=== PATIENT | male | born 1965 | race Caucasian/White ===

== ENCOUNTER 2018-01-13 14:24 | Inpatient (IN) | payer OTHER ==
[2018-01-13] MEDS ORDERED: MAG HYDROX/AL HYDROX/SIMETH 30 ML UNIT-DOSE CUP PO PRN (17:20)
[2018-01-13] MEDS ORDERED: MENTHOL/PHENOL 1 EACH UD MM PRN (17:20)
[2018-01-13] MEDS ORDERED: MAGNESIUM CITRATE 300 ML BOTTLE PO PRN (17:20)
[2018-01-13] MEDS ORDERED: LOPERAMIDE HCL 2 MG CAPSULE PO PRN (17:20)
[2018-01-13] MEDS ORDERED: hydrOXYzine PAMOATE 50 MG CAPSULE (FP) PO PRN (17:20)
[2018-01-13] MEDS ORDERED: MAGNESIUM HYDROX 2400MG/30ML ORAL SUSPENSION 30 ML CUP PO PRN (17:20)
[2018-01-13] MEDS ORDERED: P-EPHED 60MG/TRIPROLIDI 2.5MG TABLET PO PRN (17:20)
[2018-01-13] MEDS ORDERED: chlordiazePOXIDE HCL 25 MG CAPSULE PO PRN (17:20)
[2018-01-13] MEDS ORDERED: NICOTINE POLACRILEX 4 MG GUM BC PRN (17:20)
[2018-01-13] MEDS ORDERED: guaiFENesin/D-METHORPHAN HB 10 ML UNIT-DOSE CUPS PO PRN (17:20)
[2018-01-13] MEDS ORDERED: ACETAMINOPHEN 325 MG TABLET (FP) PO PRN (17:20)
[2018-01-13] MEDS ORDERED: IBUPROFEN 400 MG TABLET (FP) PO PRN (17:20)
--- NOTE | 2018-01-13 17:31 | HP ---
CIWA Score - CIWA Score Nausea/Vomitin-No Nausea/No Vomiting Muscle Tremors: 2 Anxiety: 3 Agitation: 3 Paroxysmal Sweats: 3 Orientation: 0-Oriented Tacttile Disturbances: 0-None Auditory Disturbances: 0-None Visual Disturbances: 0-None Headache: 0-None Present CIWA-Ar Total Score: 11 Admission ROS S - HPI Chief Complaint: I am here for detox Allergies/Adverse Reactions: Allergies Allergy/AdvReac Type Severity Reaction Status Date / Time No Known Allergies Allergy Verified 01/13/18 17:19 History of Present Illness: 52 yo male with hx of nicotine and alcohol dependence is here seeking detox. PMHX: depression, denies any other medical problems. Suicidal / homicidal ideation or suicide attempts. Last detox [facility] 11/15/15 -11/19/15. Denies hx seizures or blackouts. Longest period of sobriety 1.5 years . Exam Limitations: No Limitations - Ebola screening Have you traveled outside of the country in the last 21 days: No Have you had contact with anyone from an Ebola affected area: No Have you been sick,other than usual withdrawal symptoms: No Do you have a fever: No - Review of Systems Constitutional: Loss of Appetite, Changes in sleep, Weakness, Unintentional Wgt. Loss (20 lb) EENT: reports: Nose Congestion Respiratory: reports: Cough (chronic r/t to smoking) Cardiac: reports: No Symptoms Reported GI: reports: Poor Fluid Intake, Indigestion : reports: No Symptoms Reported Musculoskeletal: reports: No Symptoms Reported Integumentary: reports: No Symptoms Reported Neuro: reports: No Symptoms reported Endocrine: reports: No Symptoms Reported Hematology: reports: No Symptoms Reported Psychiatric: reports: Orientated x3, Anxious Other Systems: Reviewed and Negative Patient History - Patient Medical History Hx Anemia: No Hx Asthma: No Hx Chronic Obstructive Pulmonary Disease (COPD): No Hx Cancer: No Hx Cardiac Disorders: No Hx Congestive Heart Failure: No Hx Hypertension: No Hx Hypercholesterolemia: No Hx Pacemaker: No HX Cerebrovascular Accident: No Hx Seizures: No Hx Dementia: No Hx Diabetes: No Hx Gastrointestinal Disorders: No Hx Liver Disease: No Hx Genitourinary Disorders: No Hx Sexually Transmitted Disorders: No Hx Renal Disease (ESRD): No Hx Thyroid Disease: No Hx Human Immunodeficiency Virus (HIV): No (September 2017 last tested ) Hx Hepatitis C: No Hx Depression: Yes Hx Suicide Attempt: No Hx Bipolar Disorder: No Hx Schizophrenia: No - Patient Surgical History Past Surgical History: No Hx Neurologic Surgery: No Hx Cataract Extraction: No Hx Cardiac Surgery: No Hx Lung Surgery: No Hx Breast Surgery: No Hx Breast Biopsy: No Hx Abdominal Surgery: No Hx Appendectomy: No Hx Cholecystectomy: No Hx Genitourinary Surgery: No Hx Section: No Hx Orthopedic Surgery: No Anesthesia Reaction: No - PPD History Previous Implant?: Yes Documented Results: Positive w/proof Date: 06/12/14 Results: 15 mm PPD to be Administered?: No - Reproductive History Patient is a Female of Child Bearing Age (11 -55 yrs old): No - Smoking Cessation Smoking history: Current every day smoker Have you smoked in the past 12 months: Yes Aproximately how many cigarettes per day: 30 Cigars Per Day: 0 Hx Chewing Tobacco Use: No Initiated information on smoking cessation: Yes 'Breaking Loose' booklet given: 01/13/18 - Substance & Tx. History Hx Alcohol Use: Yes Hx Substance Use: Yes Substance Use Type: Alcohol Hx Substance Use Treatment: Yes ([facility] 11/15/15 -11/19/15) - Substances Abused Alcohol-beer Route: Oral Frequency: Daily Amount used: 1 case Age of first use: 22 Date of Last Use: 01/13/18 Family Disease History - Family Disease History Family Disease History: CA: Sister (LUNG,BREAST), Other: Father (ALCOHOLIC), Mother (, birthing ) Admission Physical Exam BHS - Vital Signs Vital Signs: Vital Signs - 24 hr 01/13/18 16:06 Temperature 98.6 F Pulse Rate 110 H Respiratory 20 Rate Blood Pressure 145/86 - Physical General Appearance: Yes: No Apparent Distress, Disheveled, Alcohol on Breath, Thin, Irritable, Anxious HEENTM: Yes: EOMI, Hearing grossly Normal, Normal ENT Inspection, Normocephalic , Normal Voice, AGGIE, Pharynx Normal, Tm's normal Respiratory: Yes: Chest Non-Tender, Lungs Clear, Normal Breath Sounds, No Respiratory Distress, No Accessory Muscle Use Neck: Yes: No masses,lesions,Nodules, Trachea in good position Breast: Yes: Breast Exam Deferred Cardiology: Yes: Regular Rhythm, Regular Rate Abdominal: Yes: Normal Bowel Sounds, Non Tender, Flat, Soft Genitourinary: Yes: Within Normal Limits Back: Yes: Normal Inspection Musculoskeletal: Yes: full range of Motion, Gait Steady, Pelvis Stable Extremities: Yes: Normal Capillary Refill, Normal Inspection, Normal Range of Motion, Non-Tender Neurological: Yes: sample selector II-XII NML intact, Fully Oriented, Alert, Motor Strength 5/5, Depressed Affect Integumentary: Yes: Normal Color, Dry, Warm Lymphatic: Yes: Within Normal Limits - Diagnostic (1) Weight loss Current Visit: Yes Status: Acute (2) Anxious mood Current Visit: Yes Status: Acute (3) Alcohol dependence with uncomplicated withdrawal Current Visit: Yes Status: Chronic (4) Nicotine dependence Current Visit: Yes Status: Chronic Qualifiers: Nicotine product type: cigarettes Substance use status: uncomplicated Qualified Code(s): F17.210 - Nicotine dependence, cigarettes, uncomplicated (5) Positive PPD Current Visit: Yes Status: Chronic Cleared for Admission [facility] - Detox or Rehab [facility] Level of Care: Medically Supervised Detox Regimen/Protocol: Librium S Breath Alcohol Content Breath Alcohol Content: 0.202 Urine Drug Screen - Results Drug Screen Negative: No Urine Drug Screen Results: THC-Marijuana
[2018-01-13] MEDS ORDERED: chlordiazePOXIDE HCL 25 MG CAPSULE PO ONE (18:45)
[2018-01-13] MEDS: chlordiazePOXIDE HCL 25 MG CAPSULE PO SCH (23:11)
[2018-01-13] MEDS: THIAMINE HCL 100 MG TABLET (FP) PO SCH (23:12)
[2018-01-13 23:43] LABS: URINE APPEARANCE SLCLOUDY; URINE BILIRUBIN NEGATIVE (<2.0 mg/dL); URINE COLOR YELLOW; URINE GLUCOSE (UA) NEGATIVE (NEGATIVE); URINE KETONE TRACE (NEGATIVE); URINE LEUK ESTERASE NEGATIVE (NEGATIVE); URINE NITRITE NEGATIVE (NEGATIVE)
[2018-01-13 23:53] LABS: URINE PROTEIN 1+ (NEGATIVE)
[2018-01-13 23:58] LABS: EPI CELLS RARE /HPF (FEW); URINE HYALINE CAST 1 /lpf; URINE MUCUS RARE
[2018-01-14] MEDS: chlordiazePOXIDE HCL 25 MG CAPSULE PO SCH ×4 (05:28→22:10)
[2018-01-14 09:55] LABS: HEMATOCRIT 36.5 % (35.4-49); HEMOGLOBIN 12.5 GM/dL (11.7-16.9); MCH 34.3 pg (25.7-33.7); MCHC 34.3 g/dl (32.0-35.9); MEAN PLT VOLUME 9.1 fl (7.5-11.1); PLATELET COUNT 142 K/MM3 (134-434); RBC 3.65 M/mm3 (4.00-5.60); RDW 14.6 % (11.9-15.9); WHITE BLOOD COUNT 10.3 K/mm3 (4.0-10.0)
[2018-01-14] MEDS: PRENATAL VITAMINS W/ FOLIC ACID TABLET (FP) PO SCH (10:34)
[2018-01-14] MEDS: NICOTINE 21 MG/24 HOURS TOPICAL PATCH TD SCH (10:35)
[2018-01-14 10:38] LABS: ALBUMIN 3.3 g/dl (3.4-5.0); ALK PHOS 64 U/L (45-117); ANION GAP 4 (8-16); BLOOD UREA NITROGEN 11 mg/dL (7-18); CALCIUM 8.7 mg/dL (8.5-10.1); CHLORIDE 105 mmol/L (98-107); CO2 30 mmol/L (21-32); GLUCOSE,RANDOM 79 mg/dL (74-106); POTASSIUM 3.8 mmol/L (3.5-5.1); SGOT/AST 72 U/L (15-37); SGPT/ALT 45 U/L (12-78); SODIUM 139 mmol/L (136-145)
[2018-01-14 10:40] LABS: BILIRUBIN,TOTAL 1.1 mg/dL (0.2-1.0); CREATININE 0.7 mg/dL (0.7-1.3); TOT PROT 6.5 g/dl (6.4-8.2)
--- NOTE | 2018-01-14 10:42 | CONSULT ---
[facility] Psychiatric Consult - Data Date of interview: 01/14/18 Admission source: [facility] Identifying data: Patient is a 52 year old male, , unemployed, father of one, and currently homeless. This is one of multiple admissions for patient. Pt. admitted to for alcohol dependence. Substance Abuse History: Following information confirmed with Mr. Loyola: - Smoking Cessation. Smoking history: Current every day smoker. Have you smoked in the past 12 months: Yes. Aproximately how many cigarettes per day: 30. Cigars Per Day: 0. Hx Chewing Tobacco Use: No. Initiated information on smoking cessation: Yes. 'Breaking Loose' booklet given: 01/13/18. - Substance & Tx. History. Hx Alcohol Use: Yes. Hx Substance Use: Yes. Substance Use Type : Alcohol. Hx Substance Use Treatment: Yes ([facility] 11/15/15 -11/19/15). - Substances Abused. Alcohol-beer. Route: Oral. Frequency: Daily. Amount used: 1 case. Age of first use: 22. Date of Last Use: 01/13/18 Medical History: Denies, states he's fine. Psychiatric History: Pt irritable and guarded. Patient upset about being awaken "every 30 minutes" throughout the night. Patient denies h/o psychiatric hospitalizations, outpatient care, and suicide attempt. As per Dr. Valenzuela's note on 10/22/15 patient reported a history of bipolar disorder and reported accepting risperdal. Pt. denied information to screen writer. Patient currently denies suicidal and homicidal ideation. Physical/Sexual Abuse/Trauma History: Denies. Mental Status Exam - Mental Status Exam Alert and Oriented to: Time, Place, Person Cognitive Function: Good Patient Appearance: Unkempt Mood: Irritable Affect: Mood Congruent Patient Behavior: Guarded Speech Pattern: Rambling Voice Loudness: Moderately Soft/Quiet Thought Process: Goal Oriented Thought Disorder: Not Present Hallucinations: Denies Suicidal Ideation: Denies Homicidal Ideation: Denies Insight/Judgement: Poor Sleep: Poorly Appetite: Fair Muscle strength/Tone: Normal Gait/Station: Normal Psychiatric Findings - Problem List ([place] 1, 2,3) (1) Substance induced mood disorder Current Visit: Yes Status: Acute (2) Alcohol dependence with uncomplicated withdrawal Current Visit: Yes Status: Acute (3) Insomnia Current Visit: Yes Status: Acute - Initial Treatment Plan Initial Treatment Plan: Psychoeducation provided. Detoxification in progress. Insomnia to be addressed with the Melatonin 5mg ordered by the [employer]. Will continue to monitor.
--- NOTE | 2018-01-14 11:30 | EKG ---
Test Reason : Blood Pressure : / mmHG Vent. Rate : 090 BPM Atrial Rate : 090 BPM P-R Int : 146 ms QRS Dur : 090 ms QT Int : 354 ms P-R-T Axes : 063 -08 068 degrees QTc Int : 433 ms NORMAL SINUS RHYTHM NORMAL ECG NO PREVIOUS ECGS AVAILABLE Confirmed by VANCE RUDOLPH MD ([id number]) on 01/14/2018 11:30:31 AM Referred By: Confirmed By:VANCE RUDOLPH MD
--- NOTE | 2018-01-14 13:23 | PN ---
[facility] CIWA - CIWA Score Nausea/Vomitin-No Nausea/No Vomiting Muscle Tremors: None Anxiety: 5 Agitation: 4-Moderately Restless Paroxysmal Sweats: No Perspiration Orientation: 0-Oriented Tacttile Disturbances: 3-Moderate Itch/Numb/Burn Auditory Disturbances: 2-Mild Harshness/Frighten Visual Disturbances: 3-Moderate Sensitivity Headache: 0-None Present CIWA-Ar Total Score: 17 BHS Progress Note (SOAP) Subjective: Fatigue, Anxious, Body Aches, Interrupted Sleep. Objective: PATIENT A & O X 3, OBSERVED AMBULATING ON UNIT. NO ACUTE DISTRESS. 01/14/18 13:19 Vital Signs Temperature 97.4 F L 01/14/18 09:17 Pulse Rate 87 01/14/18 11:30 Respiratory Rate 16 01/14/18 11:30 Blood Pressure 116/72 01/14/18 09:17 O2 Sat by Pulse Oximetry (%) Laboratory Tests 01/13/18 01/14/18 01/14/18 23:48 07:30 07:30 WBC 10.3 H RBC 3.65 L Hgb 12.5 Hct 36.5 MCV 100.0 H MCH 34.3 H MCHC 34.3 RDW 14.6 Plt Count 142 D MPV 9.1 Sodium 139 Potassium 3.8 Chloride 105 Carbon Dioxide 30 Anion Gap 4 L BUN 11 D Creatinine 0.7 Creat Clearance w eGFR > 60 Random Glucose 79 D Calcium 8.7 Total Bilirubin 1.1 H D AST 72 H D ALT 45 D Alkaline Phosphatase 64 Total Protein 6.5 Albumin 3.3 L Urine Color Yellow Urine Appearance Slcloudy Urine pH 5.0 D Ur Specific [place] 1.019 Urine Protein 1+ H Urine Glucose (UA) Negative Urine Ketones Trace H Urine Blood 1+ H Urine Nitrite Negative Urine Bilirubin Negative Urine Urobilinogen 2.0 Ur Leukocyte Esterase Negative Urine WBC (Auto) 1 Urine RBC (Auto) 1 Ur Epithelial Cells Rare Hyaline Casts 1 Urine Mucus Rare RPR Titer 01/14/18 07:30 WBC RBC Hgb Hct MCV MCH MCHC RDW Plt Count MPV Sodium Potassium Chloride Carbon Dioxide Anion Gap BUN Creatinine Creat Clearance w eGFR Random Glucose Calcium Total Bilirubin AST ALT Alkaline Phosphatase Total Protein Albumin Urine Color Urine Appearance Urine pH Ur Specific [place] Urine Protein Urine Glucose (UA) Urine Ketones Urine Blood Urine Nitrite Urine Bilirubin Urine Urobilinogen Ur Leukocyte Esterase Urine WBC (Auto) Urine RBC (Auto) Ur Epithelial Cells Hyaline Casts Urine Mucus RPR Titer Nonreactive LABS NOTED. Assessment: 01/14/18 13:22 WITHDRAWAL SYMPTOMS. Plan: CONTINUE DETOX. INCREASE DAILY PO FLUID INTAKE.
[2018-01-14] MEDS: THIAMINE HCL 100 MG TABLET (FP) PO SCH (22:10)
[2018-01-14] MEDS: MELATONIN 5 MG TABLETS PO PRN (22:12)
[2018-01-15] MEDS: chlordiazePOXIDE HCL 25 MG CAPSULE PO SCH ×3 (05:49→17:21)
[2018-01-15] MEDS: PRENATAL VITAMINS W/ FOLIC ACID TABLET (FP) PO SCH (10:08)
[2018-01-15] MEDS: NICOTINE 21 MG/24 HOURS TOPICAL PATCH TD SCH (10:09)
--- NOTE | 2018-01-15 12:14 | PN ---
[facility] CIWA - CIWA Score Nausea/Vomitin-No Nausea/No Vomiting Muscle Tremors: None Anxiety: 5 Agitation: 2 Paroxysmal Sweats: 3 Orientation: 0-Oriented Tacttile Disturbances: 2-Mild Itch/Numbness/Burn Auditory Disturbances: 0-None Visual Disturbances: 3-Moderate Sensitivity Headache: 0-None Present CIWA-Ar Total Score: 15 S Progress Note (SOAP) Subjective: Diarrhea, Body Aches, Sweating, Anxious. Objective: PATIENT A & O X 3. NO ACUTE DISTRESS. 01/15/18 12:11 Vital Signs Temperature 98.8 F 01/15/18 09:32 Pulse Rate 100 H 01/15/18 09:32 Respiratory Rate 18 01/15/18 09:32 Blood Pressure 116/84 01/15/18 09:32 O2 Sat by Pulse Oximetry (%) Laboratory Tests 01/13/18 01/14/18 01/14/18 23:48 07:30 07:30 WBC 10.3 H RBC 3.65 L Hgb 12.5 Hct 36.5 MCV 100.0 H MCH 34.3 H MCHC 34.3 RDW 14.6 Plt Count 142 D MPV 9.1 Sodium 139 Potassium 3.8 Chloride 105 Carbon Dioxide 30 Anion Gap 4 L BUN 11 D Creatinine 0.7 Creat Clearance w eGFR > 60 Random Glucose 79 D Calcium 8.7 Total Bilirubin 1.1 H D AST 72 H D ALT 45 D Alkaline Phosphatase 64 Total Protein 6.5 Albumin 3.3 L Urine Color Yellow Urine Appearance Slcloudy Urine pH 5.0 D Ur Specific [place] 1.019 Urine Protein 1+ H Urine Glucose (UA) Negative Urine Ketones Trace H Urine Blood 1+ H Urine Nitrite Negative Urine Bilirubin Negative Urine Urobilinogen 2.0 Ur Leukocyte Esterase Negative Urine WBC (Auto) 1 Urine RBC (Auto) 1 Ur Epithelial Cells Rare Hyaline Casts 1 Urine Mucus Rare RPR Titer 01/14/18 07:30 WBC RBC Hgb Hct MCV MCH MCHC RDW Plt Count MPV Sodium Potassium Chloride Carbon Dioxide Anion Gap BUN Creatinine Creat Clearance w eGFR Random Glucose Calcium Total Bilirubin AST ALT Alkaline Phosphatase Total Protein Albumin Urine Color Urine Appearance Urine pH Ur Specific [place] Urine Protein Urine Glucose (UA) Urine Ketones Urine Blood Urine Nitrite Urine Bilirubin Urine Urobilinogen Ur Leukocyte Esterase Urine WBC (Auto) Urine RBC (Auto) Ur Epithelial Cells Hyaline Casts Urine Mucus RPR Titer Nonreactive LABS NOTED. Assessment: 01/15/18 12:12 WITHDRAWAL SYMPTOMS. Plan: CONTINUE DETOX. INCREASE DAILY PO FLUID INTAKE.
[2018-01-15] MEDS: THIAMINE HCL 100 MG TABLET (FP) PO SCH (22:09)
[2018-01-15] MEDS: MELATONIN 5 MG TABLETS PO PRN (22:09)
[2018-01-15] MEDS: chlordiazePOXIDE 5 MG CAPSULE PO SCH (22:10)
[2018-01-16] MEDS: chlordiazePOXIDE 5 MG CAPSULE PO SCH ×2 (05:15→10:23)
[2018-01-16] MEDS ORDERED: AMMONIUM LACTATE 12% LOTION 225 GM BOTTLE TP SCH (10:00)
[2018-01-16] MEDS: PRENATAL VITAMINS W/ FOLIC ACID TABLET (FP) PO SCH (10:23)
[2018-01-16] MEDS: NICOTINE 21 MG/24 HOURS TOPICAL PATCH TD SCH (10:25)
[2018-01-16 13:23] VITALS: BP 110/66; PULSE 76; TEMP 95.7
--- NOTE | 2018-01-16 15:26 | PN ---
BHS Progress Note (SOAP) Subjective: Sweating, Anxious, Tremors, Diarrhea. Objective: PATIENT A & O X 3, OBSERVED AMBULATING ON UNITY. NO ACUTE DISTRESS. 01/16/18 15:25 Vital Signs Temperature 95.7 F L 01/16/18 13:22 Pulse Rate 76 01/16/18 13:22 Respiratory Rate 16 01/16/18 13:22 Blood Pressure 110/66 01/16/18 13:22 O2 Sat by Pulse Oximetry (%) Laboratory Tests 01/13/18 01/14/18 01/14/18 23:48 07:30 07:30 WBC 10.3 H RBC 3.65 L Hgb 12.5 Hct 36.5 MCV 100.0 H MCH 34.3 H MCHC 34.3 RDW 14.6 Plt Count 142 D MPV 9.1 Sodium 139 Potassium 3.8 Chloride 105 Carbon Dioxide 30 Anion Gap 4 L BUN 11 D Creatinine 0.7 Creat Clearance w eGFR > 60 Random Glucose 79 D Calcium 8.7 Total Bilirubin 1.1 H D AST 72 H D ALT 45 D Alkaline Phosphatase 64 Total Protein 6.5 Albumin 3.3 L Urine Color Yellow Urine Appearance Slcloudy Urine pH 5.0 D Ur Specific [place] 1.019 Urine Protein 1+ H Urine Glucose (UA) Negative Urine Ketones Trace H Urine Blood 1+ H Urine Nitrite Negative Urine Bilirubin Negative Urine Urobilinogen 2.0 Ur Leukocyte Esterase Negative Urine WBC (Auto) 1 Urine RBC (Auto) 1 Ur Epithelial Cells Rare Hyaline Casts 1 Urine Mucus Rare RPR Titer 01/14/18 07:30 WBC RBC Hgb Hct MCV MCH MCHC RDW Plt Count MPV Sodium Potassium Chloride Carbon Dioxide Anion Gap BUN Creatinine Creat Clearance w eGFR Random Glucose Calcium Total Bilirubin AST ALT Alkaline Phosphatase Total Protein Albumin Urine Color Urine Appearance Urine pH Ur Specific [place] Urine Protein Urine Glucose (UA) Urine Ketones Urine Blood Urine Nitrite Urine Bilirubin Urine Urobilinogen Ur Leukocyte Esterase Urine WBC (Auto) Urine RBC (Auto) Ur Epithelial Cells Hyaline Casts Urine Mucus RPR Titer Nonreactive LABS NOTED. Assessment: 01/16/18 15:26 WITHDRAWAL SYMPTOMS. Plan: CONTINUE DETOX.
--- NOTE | 2018-01-16 15:28 | DS ---
[facility] Detox Discharge Summary Admission Date: 01/13/18 Discharge Date: 01/16/18 - History Present History: Alcohol Dependence Additional Comments: PATIENT DOES NOT WISH TO STAY TO COMPLETE DETOX REGIMEN. RISKS OF LEAVING DETOX UNIT AGAINST MEDICAL ADVICE AND PRIOR TO COMPLETION OF DETOX REGIMEN EXPLAINED TO PATIENT. PATIENT ADVISED TO GO IMMEDIATELY TO NEAREST ER SHOULD ANY INTOLERABLE DETOX SYMPTOMS DEVELOP AT ANY TIME. PATIENT LEFT DETOX UNIT IN STABLE MEDICAL CONDITION. Pertinent Past History: History of Positive PPD, Insomnia, Nicotine Dependence, Anxiety. - Physical Exam Results Vital Signs: Vital Signs Temperature 95.7 F L 01/16/18 13:22 Pulse Rate 76 01/16/18 13:22 Respiratory Rate 16 01/16/18 13:22 Blood Pressure 110/66 01/16/18 13:22 O2 Sat by Pulse Oximetry (%) - Treatment Hospital Course: Detoxed Safely - Medication Discharge Medications: Ambulatory Orders BUPROPion HCL "SR" [Wellbutrin Sr [Nf]] 150 mg PO DAILY 01/13/18 - Diagnosis (1) Alcohol dependence with uncomplicated withdrawal Status: Acute (2) Anxious mood Status: Acute (3) Weight loss Status: Acute (4) Nicotine dependence Status: Chronic Qualifiers: Nicotine product type: cigarettes Substance use status: uncomplicated Qualified Code(s): F17.210 - Nicotine dependence, cigarettes, uncomplicated (5) Positive PPD Status: Chronic (6) Insomnia Status: Acute Qualifiers: Insomnia type: unspecified Qualified Code(s): G47.00 - Insomnia, unspecified (7) Substance induced mood disorder Status: Acute - AMA Did Patient Leave Against Medical Advice: Yes (PATIENT DID NOT WISH TO STAY TO COMPELTE DETOX REGIMEN.)
[2018-01-16] MEDS ORDERED: chlordiazePOXIDE HCL 10 MG CAPSULE PO SCH (23:00)
== END 2018-01-16 14:54 | disposition left against medical advice (07) | DRG 770 ==
LOC: YASAS 14:24 → Y3N 18:28
PROVIDERS: ADMIT Internal Medicine; ATTEND Internal Medicine
PROC: HZ2ZZZZ Detoxification Services for Substance Abuse Treatment (ICD-10-PCS; principal; 2018-01-13)
DX: F10.230 Alcohol dependence with withdrawal, uncomplicated (principal); F17.210 Nicotine dependence, cigarettes, uncomplicated; F19.24 Other psychoactive substance dependence with psychoactive substance-induced mood disorder; F41.9 Anxiety disorder, unspecified; G47.00 Insomnia, unspecified; R76.11 Nonspecific reaction to tuberculin skin test without active tuberculosis; R63.4 Abnormal weight loss; Z68.20 Body mass index [BMI] 20.0-20.9, adult
CPT/HCPCS: 36415; 71046-TC-FY; 80053; 81003; 81015; 85027; 86593; 93005; 93010

== ENCOUNTER 2018-07-11 14:40 | Inpatient (IN) | payer SELFPAY ==
[2018-07-11 14:46] VITALS: BMI 20.7
--- NOTE | 2018-07-11 15:07 | HP ---
CIWA Score - CIWA Score Nausea/Vomitin Muscle Tremors: 2 Anxiety: 2 Agitation: 2 Paroxysmal Sweats: 1-Minimal Palms Moist Orientation: 0-Oriented Tacttile Disturbances: 1-Very Mild Itch/Numbness Auditory Disturbances: 1-Very Mild Visual Disturbances: 1-Very Mild Sensitivity Headache: 2-Mild CIWA-Ar Total Score: 14 Admission ROS BHS - HPI Chief Complaint: i need help to stop drinking alcohol,marijuana Allergies/Adverse Reactions: Allergies Allergy/AdvReac Type Severity Reaction Status Date / Time No Known Allergies Allergy Verified 07/11/18 16:27 History of Present Illness: this 52 years old male with alcohol and marijuana dependence,seeking detox, withdrawal symptom,last detox [facility] 04/12/18 to 04/16/18 blackout hypertension no med anxiety,depression,insomnia tinea pedis weight loss multiple admissions in detox keep relapsing no significant period of sobriety Exam Limitations: No Limitations - Ebola screening Have you been sick,other than usual withdrawal symptoms: No - Review of Systems Constitutional: Loss of Appetite, Malaise, Night Sweats, Changes in sleep, Weakness, Unintentional Wgt. Loss EENT: reports: Nose Congestion Respiratory: reports: No Symptoms reported Cardiac: reports: No Symptoms Reported GI: reports: Nausea, Poor Appetite, Abdominal cramping : reports: No Symptoms Reported Musculoskeletal: reports: Back Pain, Muscle Pain Integumentary: reports: Dryness Neuro: reports: Headache, Tremors Endocrine: reports: No Symptoms Reported Hematology: reports: No Symptoms Reported Psychiatric: reports: No Sypmtoms Reported, Judgement Intact, Mood/Affect Appropiate, Orientated x3 (insomnia) Patient History - Patient Medical History Hx Anemia: No Hx Asthma: No Hx Chronic Obstructive Pulmonary Disease (COPD): No Hx Cancer: No Hx Cardiac Disorders: No Hx Congestive Heart Failure: No Hx Hypertension: No Hx Hypercholesterolemia: No Hx Pacemaker: No HX Cerebrovascular Accident: No Hx Seizures: No Hx Dementia: No Hx Diabetes: No Hx Gastrointestinal Disorders: No Hx Liver Disease: No Hx Genitourinary Disorders: No Hx Sexually Transmitted Disorders: No Hx Renal Disease (ESRD): No Hx Thyroid Disease: No Hx Human Immunodeficiency Virus (HIV): No (September 2017 last tested ) Hx Hepatitis C: No Hx Depression: Yes Hx Suicide Attempt: No Hx Bipolar Disorder: No Hx Schizophrenia: No Other Medical History: no suicidal,no homicidal,insomnia - Patient Surgical History Past Surgical History: No Hx Neurologic Surgery: No Hx Cataract Extraction: No Hx Cardiac Surgery: No Hx Lung Surgery: No Hx Breast Surgery: No Hx Breast Biopsy: No Hx Abdominal Surgery: No Hx Appendectomy: No Hx Cholecystectomy: No Hx Genitourinary Surgery: No Hx Section: No Hx Orthopedic Surgery: No Anesthesia Reaction: No - PPD History Date: 06/12/14 Results: 15 mm - Smoking Cessation Smoking history: Current every day smoker Have you smoked in the past 12 months: Yes Aproximately how many cigarettes per day: 30 Cigars Per Day: 0 Hx Chewing Tobacco Use: No Initiated information on smoking cessation: Yes 'Breaking Loose' booklet given: 07/11/18 - Substance & Tx. History Hx Alcohol Use: Yes Hx Substance Use: Yes Substance Use Type: Alcohol, Marijuana Hx Substance Use Treatment: Yes ([facility] 04/12/18 to 04/16/18) - Substances Abused Alcohol Route: Oral Frequency: Daily Amount used: 1 pint of whisky/12 packs of 24 ozs Age of first use: 22 Date of Last Use: 07/11/18 Marijuana/Hashish Route: Smoking Frequency: 3-6 times per week Amount used: 50$ Age of first use: 22 Date of Last Use: 07/10/18 Family Disease History - Family Disease History Family Disease History: CA: Father (ALCOHOLIC,lung cancer), Sister (LUNG,BREAST) , Other: Father, Mother (, birthing ) Admission Physical Exam BHS - Vital Signs Vital Signs: Vital Signs - 24 hr 07/11/18 14:41 Temperature 98.5 F Pulse Rate 73 Respiratory 16 Rate Blood Pressure 102/82 - Physical General Appearance: Yes: Moderate Distress, Tremorous, Irritable, Sweating, Anxious HEENTM: Yes: Normal ENT Inspection, AGGIE, Pharynx Normal Respiratory: Yes: Lungs Clear, Normal Breath Sounds, No Respiratory Distress Neck: Yes: Within Normal Limits, Supple, Trachea in good position Breast: Yes: Within Normal Limits Cardiology: Yes: Within Normal Limits, Regular Rhythm, Regular Rate, S1, S2 Abdominal: Yes: Within Normal Limits, Normal Bowel Sounds, Non Tender, Soft Genitourinary: Yes: Within Normal Limits Back: Yes: Muscle Spasm Musculoskeletal: Yes: full range of Motion, Back pain, Muscle Pain Extremities: Yes: Within Normal Limits, Normal Range of Motion, Tremors 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, Fully Oriented, Alert, Motor Strength 5/5 Integumentary: Yes: Dry, Other (tinea pedis) Lymphatic: Yes: Within Normal Limits - Diagnostic (1) Alcohol dependence with uncomplicated withdrawal Current Visit: No Status: Acute (2) Alcohol dependence with intoxication, uncomplicated Current Visit: Yes Status: Acute (3) Nicotine dependence Current Visit: No Status: Acute Qualifiers: Nicotine product type: cigarettes Substance use status: in withdrawal Qualified Code(s): F17.213 - Nicotine dependence, cigarettes, with withdrawal (4) Weight loss Current Visit: No Status: Acute (5) Insomnia secondary to depression with anxiety Current Visit: Yes Status: Acute (6) Dehydration Current Visit: Yes Status: Acute (7) Tinea pedis Current Visit: Yes Status: Acute Cleared for Admission [facility] - Detox or Rehab [facility] Level of Care: Medically Managed Detox Regimen/Protocol: Librium S Breath Alcohol Content Breath Alcohol Content: 0.297 Urine Drug Screen - Results Drug Screen Negative: Yes
[2018-07-11] MEDS ORDERED: guaiFENesin/D-METHORPHAN HB 10 ML UNIT-DOSE CUPS PO PRN (15:22)
[2018-07-11] MEDS ORDERED: chlordiazePOXIDE HCL 25 MG CAPSULE PO PRN (15:22)
[2018-07-11] MEDS ORDERED: hydrOXYzine PAMOATE 50 MG CAPSULE (FP) PO PRN (15:22)
[2018-07-11] MEDS ORDERED: IBUPROFEN 400 MG TABLET (FP) PO PRN (15:22)
[2018-07-11] MEDS ORDERED: MAGNESIUM CITRATE 300 ML BOTTLE PO PRN (15:22)
[2018-07-11] MEDS ORDERED: LOPERAMIDE HCL 2 MG CAPSULE PO PRN (15:22)
[2018-07-11] MEDS ORDERED: MAGNESIUM HYDROX 2400MG/30ML ORAL SUSPENSION 30 ML CUP PO PRN (15:22)
[2018-07-11] MEDS ORDERED: MENTHOL/PHENOL 1 EACH UD MM PRN (15:22)
[2018-07-11] MEDS ORDERED: P-EPHED 60MG/TRIPROLIDI 2.5MG TABLET PO PRN (15:22)
[2018-07-11] MEDS ORDERED: ACETAMINOPHEN 325 MG TABLET (FP) PO PRN (15:22)
[2018-07-11] MEDS ORDERED: NICOTINE POLACRILEX 2 MG GUM BC PRN (15:22)
[2018-07-11] MEDS ORDERED: MAG HYDROX/AL HYDROX/SIMETH 30 ML UNIT-DOSE CUP PO PRN (15:22)
[2018-07-11] MEDS ORDERED: diphenhydrAMINE HCL 25 MG CAPSULE (FP) PO PRN (17:25)
[2018-07-11] MEDS: chlordiazePOXIDE HCL 25 MG CAPSULE PO SCH ×2 (17:36→22:49)
[2018-07-11] MEDS: NICOTINE 21 MG/24 HOURS TOPICAL PATCH TD SCH (17:37)
[2018-07-11 22:47] LABS: URINE APPEARANCE CLEAR; URINE BILIRUBIN NEGATIVE (<2.0 mg/dL); URINE COLOR COLORLESS; URINE GLUCOSE (UA) NEGATIVE (NEGATIVE); URINE KETONE NEGATIVE (NEGATIVE); URINE LEUK ESTERASE NEGATIVE (NEGATIVE); URINE NITRITE NEGATIVE (NEGATIVE); URINE PROTEIN NEGATIVE (NEGATIVE); URINE UROBILINOGEN NEGATIVE mg/dL (0.2-1.0)
[2018-07-11] MEDS: AMMONIUM LACTATE 12% LOTION 225 GM BOTTLE TP SCH (22:48)
[2018-07-11] MEDS: THIAMINE HCL 100 MG TABLET (FP) PO SCH (22:49)
[2018-07-11] MEDS: TOLNAFTATE 1% CREAM 15 GM TUBE TP SCH (22:49)
[2018-07-11] MEDS: FLUOCINONIDE 0.05% CREAM (60 GM TUBE) TP SCH (22:49)
[2018-07-12] MEDS: chlordiazePOXIDE HCL 25 MG CAPSULE PO SCH ×4 (05:08→22:17)
--- NOTE | 2018-07-12 09:13 | CONSULT ---
[facility] Psychiatric Consult - Data Date of interview: 07/12/18 Admission source: [facility] Identifying data: This is a 52 years old male, single father of one, unemployued , living with roommate, on PA support, with no psychiatric hospitalization history, with alcohol, nicotine and marijuana dependence,seeking detox reporting withdrawal symptoms, with the last detox at [facility] on 04/12/18 to 04/16 Substance Abuse History: Smoking history: Current every day smoker. Have you smoked in the past 12 months: Yes. Aproximately how many cigarettes per day: 30. Cigars Per Day: 0. Hx Chewing Tobacco Use: No. Initiated information on smoking cessation: Yes. 'Breaking Loose' booklet given: 07/11/18. - Substance & Tx. History. Hx Alcohol Use: Yes. Hx Substance Use: Yes. Substance Use Type : Alcohol, Marijuana. Hx Substance Use Treatment: Yes ([facility] 04/12/18 to ). - Substances Abused. Alcohol. Route: Oral. Frequency: Daily. Amount used: 1 pint of whisky/12 packs of 24 ozs. Age of first use: 22. Date of Last Use: 07/11/18. Marijuana/Hashish. Route: Smoking. Frequency: 3-6 times per week. Amount used: 50$. Age of first use: 22. Date of Last Use: Medical History: HTN, PPD positive history, Weight loss history, Syncope history , Dermatitis history, Psychiatric History: Patient reports history of ansiety and depression, reports no psychiatric hospitalization history, reports no medicationsn taking prior to admission. Denies suicidal, homicidal history Physical/Sexual Abuse/Trauma History: Denies Additional Comment: Observation]. Detox Unit Care Protocol. Psychiatric Findings - Problem List ([place] 1, 2,3) (1) Alcohol dependence with intoxication, uncomplicated Current Visit: Yes Status: Acute (2) Insomnia secondary to depression with anxiety Current Visit: Yes Status: Acute (3) Alcohol dependence Current Visit: No Status: Acute (4) Drug-induced mood disorder Current Visit: No Status: Acute (5) Mood disorder Current Visit: No Status: Acute (6) Syncope Current Visit: No Status: Acute (7) Weight loss Current Visit: No Status: Acute (8) Bipolar disorder Current Visit: No Status: Chronic (9) Substance induced mood disorder Current Visit: No Status: Suspected (10) Positive PPD Current Visit: No Status: Resolved
--- NOTE | 2018-07-12 09:41 | PN ---
S CIWA - CIWA Score Nausea/Vomitin-No Nausea/No Vomiting Muscle Tremors: 4-Moderate,w/Arms Extend Anxiety: 4-Mod. Anxious/Guarded Agitation: 4-Moderately Restless Paroxysmal Sweats: 2 Orientation: 0-Oriented Tacttile Disturbances: 0-None Auditory Disturbances: 0-None Visual Disturbances: 0-None Headache: 0-None Present CIWA-Ar Total Score: 14 BHS Progress Note (SOAP) Subjective: irritable agitation sweats interrupted sleep Objective: 07/12/18 09:37 Vital Signs Temperature 97.7 F 07/12/18 06:00 Pulse Rate 65 07/12/18 08:00 Respiratory Rate 16 07/12/18 08:00 Blood Pressure 105/61 07/12/18 06:00 O2 Sat by Pulse Oximetry (%) Laboratory Tests 07/11/18 22:30 Urine Color Colorless Urine Appearance Clear Urine pH 5.0 Ur Specific [place] 1.004 L Urine Protein Negative Urine Glucose (UA) Negative Urine Ketones Negative Urine Blood Negative Urine Nitrite Negative Urine Bilirubin Negative Urine Urobilinogen Negative Ur Leukocyte Esterase Negative labs pending aaox3 lying in bed no acute distress Assessment: 07/12/18 09:41 withdrawal sx Plan: continue detox increase fluids labs pending
--- NOTE | 2018-07-12 09:49 | EKG ---
Test Reason : Blood Pressure : / mmHG Vent. Rate : 073 BPM Atrial Rate : 073 BPM P-R Int : 160 ms QRS Dur : 086 ms QT Int : 386 ms P-R-T Axes : 077 017 065 degrees QTc Int : 425 ms NORMAL SINUS RHYTHM NORMAL ECG WHEN COMPARED WITH ECG OF 12-APR-2018 18:41, NO SIGNIFICANT CHANGE WAS FOUND Confirmed by ABDIRASHID DURAN MD ([id number]) on 07/12/2018 9:49:44 AM Referred By: Larisa Maki Confirmed By:ABDIRASHID DURAN MD
[2018-07-12] MEDS: PRENATAL VITAMINS W/ FOLIC ACID TABLET (FP) PO SCH (10:21)
[2018-07-12] MEDS: NICOTINE 21 MG/24 HOURS TOPICAL PATCH TD SCH (10:21)
[2018-07-12] MEDS: FLUOCINONIDE 0.05% CREAM (60 GM TUBE) TP SCH ×2 (10:22→22:18)
[2018-07-12] MEDS: TOLNAFTATE 1% CREAM 15 GM TUBE TP SCH ×2 (10:22→22:18)
[2018-07-12] MEDS: AMMONIUM LACTATE 12% LOTION 225 GM BOTTLE TP SCH ×2 (10:23→22:18)
[2018-07-12 10:25] LABS: HEMATOCRIT 39.9 % (35.4-49); HEMOGLOBIN 12.9 GM/dL (11.7-16.9); MCH 32.8 pg (25.7-33.7); MCHC 32.2 g/dl (32.0-35.9); MEAN CELL VOLUME 101.8 fl (80-96); MEAN PLT VOLUME 8.5 fl (7.5-11.1); PLATELET COUNT 229 K/MM3 (134-434); RBC 3.92 M/mm3 (4.00-5.60)
[2018-07-12 10:43] LABS: ALBUMIN 3.4 g/dl (3.4-5.0); ALK PHOS 54 U/L (45-117); ANION GAP 8 MMOL/L (8-16); BILIRUBIN,TOTAL 0.3 mg/dL (0.2-1); BLOOD UREA NITROGEN 12 mg/dL (7-18); CALCIUM 8.5 mg/dL (8.5-10.1); CHLORIDE 110 mmol/L (98-107); CO2 27 mmol/L (21-32); CREATININE 0.7 mg/dL (0.55-1.3); GLUCOSE,RANDOM 76 mg/dL (74-106); POTASSIUM 4.2 mmol/L (3.5-5.1); SGOT/AST 17 U/L (15-37); SGPT/ALT 19 U/L (13-61); SODIUM 145 mmol/L (136-145); TOT PROT 6.5 g/dl (6.4-8.2)
[2018-07-12] MEDS: THIAMINE HCL 100 MG TABLET (FP) PO SCH (22:18)
[2018-07-12] MEDS: MELATONIN 5 MG TABLETS PO PRN (22:18)
[2018-07-13] MEDS: chlordiazePOXIDE HCL 25 MG CAPSULE PO SCH ×2 (05:46→10:07)
--- NOTE | 2018-07-13 09:54 | PN ---
[facility] CIWA - CIWA Score Nausea/Vomitin-No Nausea/No Vomiting Muscle Tremors: 4-Moderate,w/Arms Extend Anxiety: 3 Agitation: 3 Paroxysmal Sweats: 3 Orientation: 0-Oriented Tacttile Disturbances: 0-None Auditory Disturbances: 0-None Visual Disturbances: 0-None Headache: 0-None Present CIWA-Ar Total Score: 13 S Progress Note (SOAP) Subjective: agitation anxiety sweats tired chills Objective: 07/13/18 09:53 Vital Signs Temperature 96.6 F L 07/13/18 07:33 Pulse Rate 59 L 07/13/18 07:33 Respiratory Rate 18 07/13/18 07:33 Blood Pressure 110/68 07/13/18 07:33 O2 Sat by Pulse Oximetry (%) Laboratory Tests 07/11/18 07/12/18 07/12/18 22:30 07:00 07:00 WBC 8.0 RBC 3.92 L Hgb 12.9 Hct 39.9 MCV 101.8 H MCH 32.8 MCHC 32.2 RDW 15.0 Plt Count 229 D MPV 8.5 Sodium 145 Potassium 4.2 Chloride 110 H Carbon Dioxide 27 Anion Gap 8 BUN 12 Creatinine 0.7 Creat Clearance w eGFR > 60 Random Glucose 76 Calcium 8.5 Total Bilirubin 0.3 AST 17 ALT 19 Alkaline Phosphatase 54 Total Protein 6.5 Albumin 3.4 Urine Color Colorless Urine Appearance Clear Urine pH 5.0 Ur Specific [place] 1.004 L Urine Protein Negative Urine Glucose (UA) Negative Urine Ketones Negative Urine Blood Negative Urine Nitrite Negative Urine Bilirubin Negative Urine Urobilinogen Negative Ur Leukocyte Esterase Negative RPR Titer 07/12/18 07:00 WBC RBC Hgb Hct MCV MCH MCHC RDW Plt Count MPV Sodium Potassium Chloride Carbon Dioxide Anion Gap BUN Creatinine Creat Clearance w eGFR Random Glucose Calcium Total Bilirubin AST ALT Alkaline Phosphatase Total Protein Albumin Urine Color Urine Appearance Urine pH Ur Specific [place] Urine Protein Urine Glucose (UA) Urine Ketones Urine Blood Urine Nitrite Urine Bilirubin Urine Urobilinogen Ur Leukocyte Esterase RPR Titer Nonreactive aaox3 ambulating no acute distress Assessment: 07/13/18 09:54 withdrawal sx Plan: continue detox increase fluids
[2018-07-13] MEDS: PRENATAL VITAMINS W/ FOLIC ACID TABLET (FP) PO SCH (10:07)
[2018-07-13] MEDS: NICOTINE 21 MG/24 HOURS TOPICAL PATCH TD SCH (10:07)
[2018-07-13] MEDS: TOLNAFTATE 1% CREAM 15 GM TUBE TP SCH ×2 (10:09→22:36)
[2018-07-13] MEDS: FLUOCINONIDE 0.05% CREAM (60 GM TUBE) TP SCH ×2 (10:09→22:36)
[2018-07-13] MEDS: AMMONIUM LACTATE 12% LOTION 225 GM BOTTLE TP SCH ×2 (10:09→22:36)
[2018-07-13] MEDS: chlordiazePOXIDE 5 MG CAPSULE PO SCH ×2 (17:30→22:04)
[2018-07-13] MEDS: MELATONIN 5 MG TABLETS PO PRN (22:04)
[2018-07-13] MEDS: THIAMINE HCL 100 MG TABLET (FP) PO SCH (22:04)
[2018-07-14 06:43] VITALS: BP 120/73; PULSE 50; TEMP 97.3
--- NOTE | 2018-07-14 08:31 | DS ---
[facility] Detox Discharge Summary Admission Date: 07/11/18 Discharge Date: 07/14/18 - History Present History: Alcohol Dependence Additional Comments: 52 years old male admitted on 07/11/18 for alcohol withdrawal sx completed alcohol detox regimen tolerated well denies alcohol withdrawal sx alert oriented x 3 [facility] Results Vital Signs: Vital Signs Temperature 97.3 F L 07/14/18 06:41 Pulse Rate 50 L 07/14/18 06:41 Respiratory Rate 18 07/14/18 06:41 Blood Pressure 120/73 07/14/18 06:41 O2 Sat by Pulse Oximetry (%) Pertinent Admission Physical Exam Findings: alcohol withdrawal sx Vital Signs Temperature 97.3 F L 07/14/18 06:41 Pulse Rate 50 L 07/14/18 06:41 Respiratory Rate 18 07/14/18 06:41 Blood Pressure 120/73 07/14/18 06:41 O2 Sat by Pulse Oximetry (%) Laboratory Last Values WBC 8.0 K/mm3 (4.0-10.0) 07/12/18 07:00 RBC 3.92 M/mm3 (4.00-5.60) L 07/12/18 07:00 Hgb 12.9 GM/dL (11.7-16.9) 07/12/18 07:00 Hct 39.9 % (35.4-49) 07/12/18 07:00 MCV 101.8 fl (80-96) H 07/12/18 07:00 MCH 32.8 pg (25.7-33.7) 07/12/18 07:00 MCHC 32.2 g/dl (32.0-35.9) 07/12/18 07:00 RDW 15.0 % (11.9-15.9) 07/12/18 07:00 Plt Count 229 K/MM3 (134-434) D 07/12/18 07:00 MPV 8.5 fl (7.5-11.1) 07/12/18 07:00 Sodium 145 mmol/L (136-145) 07/12/18 07:00 Potassium 4.2 mmol/L (3.5-5.1) 07/12/18 07:00 Chloride 110 mmol/L (98-107) H 07/12/18 07:00 Carbon Dioxide 27 mmol/L (21-32) 07/12/18 07:00 Anion Gap 8 MMOL/L (8-16) 07/12/18 07:00 BUN 12 mg/dL (7-18) 07/12/18 07:00 Creatinine 0.7 mg/dL (0.55-1.3) 07/12/18 07:00 Creat Clearance w eGFR > 60 (>60) 07/12/18 07:00 Random Glucose 76 mg/dL (74-106) 07/12/18 07:00 Calcium 8.5 mg/dL (8.5-10.1) 07/12/18 07:00 Total Bilirubin 0.3 mg/dL (0.2-1) 07/12/18 07:00 AST 17 U/L (15-37) 07/12/18 07:00 ALT 19 U/L (13-61) 07/12/18 07:00 Alkaline Phosphatase 54 U/L (45-117) 07/12/18 07:00 Total Protein 6.5 g/dl (6.4-8.2) 07/12/18 07:00 Albumin 3.4 g/dl (3.4-5.0) 07/12/18 07:00 Urine Color Colorless 07/11/18 22:30 Urine Appearance Clear 07/11/18 22:30 Urine pH 5.0 (5.0-8.0) 07/11/18 22:30 Ur Specific [place] 1.004 (1.010-1.035) L 07/11/18 22:30 Urine Protein Negative (NEGATIVE) 07/11/18 22:30 Urine Glucose (UA) Negative (NEGATIVE) 07/11/18 22:30 Urine Ketones Negative (NEGATIVE) 07/11/18 22:30 Urine Blood Negative (NEGATIVE) 07/11/18 22:30 Urine Nitrite Negative (NEGATIVE) 07/11/18 22:30 Urine Bilirubin Negative (<2.0 mg/dL) 07/11/18 22:30 Urine Urobilinogen Negative mg/dL (0.2-1.0) 07/11/18 22:30 Ur Leukocyte Esterase Negative (NEGATIVE) 07/11/18 22:30 RPR Titer Nonreactive (NONREACTIVE) 07/12/18 07:00 lab noted patient agrees to follow up with [facility] - Treatment Hospital Course: Detox Protocol Followed, Detoxed Safely, Responded well, Discharged Condition Good, Rehab Referral Accepted Patient has Accepted a Rehab Referral to: [facility] - Medication Discharge Medications: Ambulatory Orders BUPROPion HCL "SR" [Wellbutrin Sr -] 150 mg PO DAILY 01/13/18 Ammonium Lactate Lotion [Lac-Hydrin 12] 1 applic TP BID #1 bottle 04/16/18 Hydrocortisone 0.5% Cream [Hytone 0.5% Cream -] 1 applic TP BID #1 tube Polyvinyl Alcohol [Artificial Tears] 1 drop OU QID #1 drops 04/16/18 - Diagnosis (1) Alcohol dependence with uncomplicated withdrawal Status: Acute (2) Nicotine dependence Status: Acute Qualifiers: Nicotine product type: cigarettes Substance use status: in withdrawal Qualified Code(s): F17.213 - Nicotine dependence, cigarettes, with withdrawal (3) Weight loss Status: Acute (4) Substance induced mood disorder Status: Suspected (5) Positive PPD Status: Resolved - AMA Did Patient Leave Against Medical Advice: No
[2018-07-14] MEDS: chlordiazePOXIDE 5 MG CAPSULE PO SCH (08:33)
[2018-07-14] MEDS ORDERED: chlordiazePOXIDE HCL 10 MG CAPSULE PO SCH (17:00)
== END 2018-07-14 09:15 | disposition home or self-care (01) | DRG 775 ==
LOC: YASAS 14:40 → Y6N 15:22
PROC: HZ2ZZZZ Detoxification Services for Substance Abuse Treatment (ICD-10-PCS; principal; 2018-07-11)
DX: F10.230 Alcohol dependence with withdrawal, uncomplicated (principal); F10.220 Alcohol dependence with intoxication, uncomplicated; F17.213 Nicotine dependence, cigarettes, with withdrawal; F51.05 Insomnia due to other mental disorder; F19.24 Other psychoactive substance dependence with psychoactive substance-induced mood disorder; F39 Unspecified mood [affective] disorder; F31.9 Bipolar disorder, unspecified; E86.0 Dehydration; R76.11 Nonspecific reaction to tuberculin skin test without active tuberculosis; B35.3 Tinea pedis; Z87.898 Personal history of other specified conditions
CPT/HCPCS: 36415; 80053; 81003; 85027; 86593; 93005; 93010

== ENCOUNTER 2022-12-23 19:21 | Inpatient (IN) | payer OTHER ==
[2022-12-23 20:12] VITALS: BMI 19.9
[2022-12-23] MEDS ORDERED: MAG HYDROX/AL HYDROX/SIMETH 30 ML UNIT-DOSE CUP PO PRN (21:52)
[2022-12-23] MEDS ORDERED: guaiFENesin 600 MG TABLET.ER (FP) PO PRN (21:52)
[2022-12-23] MEDS ORDERED: IBUPROFEN 600 MG TABLET (FP) PO PRN (21:52)
[2022-12-23] MEDS ORDERED: hydrOXYzine PAMOATE 25 MG CAPSULE (FP) PO PRN (21:52)
[2022-12-23] MEDS ORDERED: ACETAMINOPHEN 325 MG TABLET (FP) PO PRN (21:52)
[2022-12-23] MEDS ORDERED: NICOTINE 10 MG CARTRIDGE (INHALER) IH PRN (21:52)
[2022-12-23] MEDS ORDERED: P-EPHED 60MG/TRIPROLIDI 2.5MG TABLET PO PRN (21:52)
[2022-12-23] MEDS ORDERED: BISMUTH SUBSALICYLATE 524 MG/30 ML PO PRN (21:52)
[2022-12-23] MEDS ORDERED: BENZOCAINE/MENTHOL (CHLORASEPTIC ) LOZENGE MM PRN (21:52)
[2022-12-23] MEDS ORDERED: ONDANSETRON *ODT* 4 MG TABLET SL PRN (21:52)
[2022-12-23] MEDS ORDERED: DICYCLOMINE HCL 10 MG CAPSULE PO PRN (21:52)
[2022-12-23] MEDS ORDERED: POLYETHYLENE GLYCOL (HEALTHYLAX) 3350 17 GM PACKET PO PRN (21:52)
[2022-12-23] MEDS ORDERED: BENZONATATE 200 MG CAPSULE PO PRN (21:52)
[2022-12-23] MEDS ORDERED: IBUPROFEN 400 MG TABLET (FP) PO PRN (21:52)
[2022-12-23] MEDS ORDERED: NICOTINE POLACRILEX 2 MG GUM BUC PRN (21:52)
[2022-12-23] MEDS ORDERED: MAGNESIUM HYDROX 2400MG/30ML ORAL SUSPENSION 30 ML CUP PO PRN (21:52)
[2022-12-23] MEDS ORDERED: LOPERAMIDE HCL 2 MG CAPSULE PO PRN (21:52)
[2022-12-23] MEDS ORDERED: chlordiazePOXIDE HCL 25 MG CAPSULE PO PRN (23:19)
[2022-12-23] MEDS: THIAMINE HCL 100 MG TABLET (FP) PO SCH (23:23)
[2022-12-23] MEDS: chlordiazePOXIDE HCL 25 MG CAPSULE PO SCH (23:48)
[2022-12-24] MEDS: chlordiazePOXIDE HCL 25 MG CAPSULE PO SCH ×4 (05:47→23:30)
[2022-12-24] MEDS: PRENATAL VITAMINS W/ FOLIC ACID TABLET (FP) PO SCH (10:02)
[2022-12-24 12:05] LABS: HEMATOCRIT 32.8 % (35.4-49); HEMOGLOBIN 11.2 GM/dL (11.7-16.9); MCH 33.2 pg (25.7-33.7); MCHC 34.1 g/dl (32.0-35.9); MEAN CELL VOLUME 97.4 fl (80-96); MEAN PLT VOLUME 8.9 fl (7.5-11.1); PLATELET COUNT 190 10^3/uL (134-434); RBC 3.37 M/mm3 (4.00-5.60); RDW 17.2 % (11.9-15.9); WHITE BLOOD COUNT 5.6 K/mm3 (4.0-10.0)
[2022-12-24 12:48] LABS: ALBUMIN 3.3 g/dl (3.4-5.0); BLOOD UREA NITROGEN 8.7 mg/dL (7-18); CALCIUM 8.6 mg/dL (8.5-10.1)
[2022-12-24 12:49] LABS: CREATININE 0.6 mg/dL (0.55-1.3)
[2022-12-24 12:50] LABS: BILIRUBIN,TOTAL 0.5 mg/dL (0.2-1); TOT PROT 6.4 g/dl (6.4-8.2)
[2022-12-24] MEDS: THIAMINE HCL 100 MG TABLET (FP) PO SCH (22:29)
[2022-12-24] MEDS: MELATONIN 5 MG TABLETS PO PRN (23:29)
[2022-12-25] MEDS: chlordiazePOXIDE HCL 25 MG CAPSULE PO SCH ×4 (05:37→22:47)
[2022-12-25] MEDS: PRENATAL VITAMINS W/ FOLIC ACID TABLET (FP) PO SCH (10:06)
[2022-12-25] MEDS: THIAMINE HCL 100 MG TABLET (FP) PO SCH (22:47)
[2022-12-25] MEDS: MELATONIN 5 MG TABLETS PO PRN (22:47)
[2022-12-26] MEDS ORDERED: chlordiazePOXIDE HCL 10 MG CAPSULE PO PRN
[2022-12-26] MEDS: chlordiazePOXIDE HCL 10 MG CAPSULE PO SCH ×4 (05:58→22:35)
[2022-12-26] MEDS: PRENATAL VITAMINS W/ FOLIC ACID TABLET (FP) PO SCH (11:02)
[2022-12-26] MEDS: MELATONIN 5 MG TABLETS PO PRN (22:33)
[2022-12-26] MEDS: THIAMINE HCL 100 MG TABLET (FP) PO SCH (22:33)
[2022-12-27] MEDS: chlordiazePOXIDE HCL 10 MG CAPSULE PO SCH ×2 (05:56→17:45)
[2022-12-27 09:47] VITALS: RESP 18
[2022-12-27] MEDS: PRENATAL VITAMINS W/ FOLIC ACID TABLET (FP) PO SCH (10:44)
[2022-12-27 13:23] VITALS: BP 120/70; PULSE 84; TEMP 98.1
[2022-12-27] MEDS: THIAMINE HCL 100 MG TABLET (FP) PO SCH (22:09)
[2022-12-28] MEDS ORDERED: chlordiazePOXIDE HCL 10 MG CAPSULE PO ONE (05:00)
[2022-12-28] MEDS: PRENATAL VITAMINS W/ FOLIC ACID TABLET (FP) PO SCH (09:53)
== END 2022-12-28 09:45 | disposition home or self-care (01) | DRG 775 ==
LOC: YASAS 19:21 → Y6N 23:22
PROVIDERS: ADMIT Allergy & Immunology; ATTEND Surgery
PROC: HZ2ZZZZ Detoxification Services for Substance Abuse Treatment (ICD-10-PCS; principal; 2022-12-23)
DX: F10.230 Alcohol dependence with withdrawal, uncomplicated (principal); F12.20 Cannabis dependence, uncomplicated; F17.210 Nicotine dependence, cigarettes, uncomplicated; B35.3 Tinea pedis; R76.11 Nonspecific reaction to tuberculin skin test without active tuberculosis; R63.4 Abnormal weight loss; Z68.1 Body mass index [BMI] 19.9 or less, adult; Z89.511 Acquired absence of right leg below knee; Z97.10 Presence of artificial limb (complete) (partial), unspecified; Z99.89 Dependence on other enabling machines and devices; W19.XXXA Unspecified fall, initial encounter; Y92.230 Patient room in hospital as the place of occurrence of the external cause
CPT/HCPCS: 36415; 80053; 85027; 86780; 87811; C9803-CS; U0003; U0005